=== PATIENT | male | born 1970 | race Caucasian/White ===

== ENCOUNTER 2019-09-14 16:15 | Inpatient (IN) | payer OTHER ==
[2019-09-14 18:15] VITALS: BMI 29.7
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
[2019-09-14] MEDS ORDERED: MENTHOL/PHENOL 1 EACH UD MM PRN (19:25)
[2019-09-14] MEDS ORDERED: MAGNESIUM CITRATE 300 ML BOTTLE PO PRN (19:25)
[2019-09-14] MEDS ORDERED: MAG HYDROX/AL HYDROX/SIMETH 30 ML UNIT-DOSE CUP PO PRN (19:25)
[2019-09-14] MEDS ORDERED: hydrOXYzine PAMOATE 25 MG CAPSULE (FP) PO PRN (19:25)
[2019-09-14] MEDS ORDERED: MAGNESIUM HYDROX 2400MG/30ML ORAL SUSPENSION 30 ML CUP PO PRN (19:25)
[2019-09-14] MEDS ORDERED: BISMUTH SUBSALICYLATE 524 MG/30 ML UD PO PRN (19:25)
[2019-09-14] MEDS ORDERED: ACETAMINOPHEN 325 MG TABLET (FP) PO PRN ×2 (19:25)
[2019-09-14] MEDS ORDERED: ONDANSETRON *ODT* 4 MG TABLET SL PRN (19:25)
[2019-09-14] MEDS ORDERED: IBUPROFEN 400 MG TABLET (FP) PO PRN (19:25)
[2019-09-14] MEDS ORDERED: NICOTINE POLACRILEX 2 MG GUM BUC PRN (19:25)
[2019-09-14] MEDS ORDERED: METHOCARBAMOL 500 MG TABLET PO PRN (19:25)
[2019-09-14] MEDS ORDERED: ALBUTEROL SO4 8 GM HFA INHALER IH PRN (19:29)
[2019-09-14] MEDS ORDERED: METHADONE HCL 10 MG TABLET (FOR DETOX USE ONLY) PO ONE (19:45)
[2019-09-14] MEDS ORDERED: buPROPion HCL 100 MG TABLET PO SCH (22:00)
[2019-09-14] MEDS ORDERED: MELATONIN 5 MG TABLETS PO PRN (22:00)
[2019-09-14] MEDS: THIAMINE HCL 100 MG TABLET (FP) PO SCH (22:02)
[2019-09-14] MEDS: GABAPENTIN 400 MG CAPSULE (FP) PO SCH (22:02)
[2019-09-14] MEDS: cloNIDine HCL 0.1 MG TABLET PO PRN (22:04)
[2019-09-15] MEDS: GABAPENTIN 400 MG CAPSULE (FP) PO SCH ×3 (05:23→22:06)
--- NOTE | 2019-09-15 09:22 | EKG ---
Test Reason : Blood Pressure : / mmHG Vent. Rate : 058 BPM Atrial Rate : 058 BPM P-R Int : 178 ms QRS Dur : 106 ms QT Int : 410 ms P-R-T Axes : 031 051 038 degrees QTc Int : 402 ms SINUS BRADYCARDIA OTHERWISE NORMAL ECG NO PREVIOUS ECGS AVAILABLE Confirmed by MD Riaz, Joo ([id number]) on 09/15/2019 9:22:32 AM Referred By: Confirmed By:Joo Mello MD
[2019-09-15] MEDS ORDERED: METHADONE HCL 5 MG TABLET (FOR DETOX USE ONLY) ONE (09:23)
[2019-09-15] MEDS ORDERED: METHADONE HCL 10 MG TABLET (FOR DETOX USE ONLY) ONE (09:23)
[2019-09-15] MEDS ORDERED: METHADONE (DETOX) 20 MG, METHADONE (DETOX) 5 MG PO ONE (10:00)
[2019-09-15 10:20] LABS: HEMATOCRIT 44.4 % (35.4-49); HEMOGLOBIN 14.8 GM/dL (11.7-16.9); MCH 31.4 pg (25.7-33.7); MCHC 33.3 g/dl (32.0-35.9); MEAN CELL VOLUME 94.3 fl (80-96); MEAN PLT VOLUME 8.5 fl (7.5-11.1); PLATELET COUNT 194 K/MM3 (134-434); RBC 4.71 M/mm3 (4.00-5.60); RDW 13.1 % (11.9-15.9); WHITE BLOOD COUNT 6.2 K/mm3 (4.0-10.0)
[2019-09-15] MEDS: PRENATAL VITAMINS W/ FOLIC ACID TABLET (FP) PO SCH (10:21)
[2019-09-15] MEDS: clonazePAM 0.5 MG TABLET PO PRN ×2 (10:28→22:06)
[2019-09-15] MEDS: NICOTINE 14 MG/24 HOURS TOPICAL PATCH TD SCH (10:28)
[2019-09-15] MEDS: TIOTROPIUM BROMIDE 2.5 MCG (SPIRIVA) RESPIMAT INHALER IH SCH (10:28)
[2019-09-15 10:30] LABS: BILIRUBIN,TOTAL 0.1 mg/dL (0.2-1); CREATININE 0.7 mg/dL (0.55-1.3); TOT PROT 6.2 g/dl (6.4-8.2)
[2019-09-15] MEDS: cloNIDine HCL 0.1 MG TABLET PO PRN (14:20)
--- NOTE | 2019-09-15 14:35 | PN ---
[facility] COWS - Scale Resting Pulse: 0= [place] 80 or Below Sweatin= Chills/Flushing Restless Observation: 0= Sits Still Pupil Size: 1= Pupils >than Normal Bone or Joint Aches: 1= Mild Discomfort Runny Nose/ Eye Tearin= None GI Upset > 30mins: 1= Stomach Cramp Tremor Observation of Outstretched Hands: 2= Slight Tremor Visible Yawning Observation: 0= None Anxiety or Irritability: 2=Irritable/Anxious Goose Flesh Skin: 3=Piloerection COWS Score: 11 S Progress Note (SOAP) Subjective: 48 years old male admitted on 09/14/19 for opiate withdrawal sx management treated with methadone detox regimen feeling tired resting on bed hot and cold chills mild headache and body aches Objective: 09/15/19 14:34 Vital Signs Temperature 96.3 F L 09/15/19 13:58 Pulse Rate 73 09/15/19 13:58 Respiratory Rate 18 09/15/19 13:58 Blood Pressure 124/83 09/15/19 13:58 O2 Sat by Pulse Oximetry (%) Laboratory Last Values WBC 6.2 K/mm3 (4.0-10.0) 09/15/19 08:00 RBC 4.71 M/mm3 (4.00-5.60) 09/15/19 08:00 Hgb 14.8 GM/dL (11.7-16.9) 09/15/19 08:00 Hct 44.4 % (35.4-49) 09/15/19 08:00 MCV 94.3 fl (80-96) 09/15/19 08:00 MCH 31.4 pg (25.7-33.7) 09/15/19 08:00 MCHC 33.3 g/dl (32.0-35.9) 09/15/19 08:00 RDW 13.1 % (11.9-15.9) 09/15/19 08:00 Plt Count 194 K/MM3 (134-434) 09/15/19 08:00 MPV 8.5 fl (7.5-11.1) 09/15/19 08:00 Sodium 144 mmol/L (136-145) 09/15/19 08:00 Potassium 4.0 mmol/L (3.5-5.1) 09/15/19 08:00 Chloride 110 mmol/L (98-107) H 09/15/19 08:00 Carbon Dioxide 28 mmol/L (21-32) 09/15/19 08:00 Anion Gap 6 MMOL/L (8-16) L 09/15/19 08:00 BUN 14.0 mg/dL (7-18) 09/15/19 08:00 Creatinine 0.7 mg/dL (0.55-1.3) 09/15/19 08:00 Est GFR (CKD-EPI)AfAm 131.17 09/15/19 08:00 Est GFR (CKD-EPI)NonAf 113.17 09/15/19 08:00 Random Glucose 99 mg/dL (74-106) 09/15/19 08:00 Calcium 9.0 mg/dL (8.5-10.1) 09/15/19 08:00 Total Bilirubin 0.1 mg/dL (0.2-1) L 09/15/19 08:00 AST 30 U/L (15-37) 09/15/19 08:00 ALT 64 U/L (13-61) H 09/15/19 08:00 Alkaline Phosphatase 119 U/L (45-117) H 09/15/19 08:00 Total Protein 6.2 g/dl (6.4-8.2) L 09/15/19 08:00 Albumin 3.0 g/dl (3.4-5.0) L 09/15/19 08:00 lab noted Assessment: 09/15/19 14:34 opiate withdrawal sx 09/15/19 14:35 discuss medication assisted treatment program Plan: continue methadone detox regimen 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
[2019-09-15] MEDS: THIAMINE HCL 100 MG TABLET (FP) PO SCH (22:06)
[2019-09-15] MEDS: PANTOPRAZOLE 20 MG TABLET (FP) PO SCH (22:07)
[2019-09-16] MEDS: GABAPENTIN 400 MG CAPSULE (FP) PO SCH (06:06)
[2019-09-16] MEDS: clonazePAM 0.5 MG TABLET PO PRN (06:08)
[2019-09-16 09:20] VITALS: BP 145/95; PULSE 91; TEMP 97.1
[2019-09-16] MEDS ORDERED: cloNIDine HCL 0.1 MG TABLET PO PRN (09:22)
--- NOTE | 2019-09-16 09:25 | PN ---
B[facility] COWS - Scale Resting Pulse: 0= [place] 80 or Below Sweatin= Chills/Flushing Restless Observation: 0= Sits Still Pupil Size: 1= Pupils >than Normal Bone or Joint Aches: 1= Mild Discomfort Runny Nose/ Eye Tearin= None GI Upset > 30mins: 1= Stomach Cramp Tremor Observation of Outstretched Hands: 1= Tremor [place], Not Seen Yawning Observation: 1= 1-2x During Session Anxiety or Irritability: 1=Feels Anxious/Irritable Goose Flesh Skin: 0=Smooth Skin COWS Score: 7 BHS Progress Note (SOAP) Subjective: 48 years old male admitted on 09/14/19 for opiate withdrawal sx management treated with methadone detox regimen long history of chronic back pain treated with rina beltran lidocaine patch and "machine" "back brace" resume rnia beltran lidocaine patch c/o chronic GERD taking zantac over the counter medication begin pepcid 20 mg po bid Objective: 09/16/19 09:21 Vital Signs Temperature 97.1 F L 09/16/19 09:19 Pulse Rate 91 H 09/16/19 09:19 Respiratory Rate 18 09/16/19 09:19 Blood Pressure 145/95 09/16/19 09:19 O2 Sat by Pulse Oximetry (%) Laboratory Last Values WBC 6.2 K/mm3 (4.0-10.0) 09/15/19 08:00 RBC 4.71 M/mm3 (4.00-5.60) 09/15/19 08:00 Hgb 14.8 GM/dL (11.7-16.9) 09/15/19 08:00 Hct 44.4 % (35.4-49) 09/15/19 08:00 MCV 94.3 fl (80-96) 09/15/19 08:00 MCH 31.4 pg (25.7-33.7) 09/15/19 08:00 MCHC 33.3 g/dl (32.0-35.9) 09/15/19 08:00 RDW 13.1 % (11.9-15.9) 09/15/19 08:00 Plt Count 194 K/MM3 (134-434) 09/15/19 08:00 MPV 8.5 fl (7.5-11.1) 09/15/19 08:00 Sodium 144 mmol/L (136-145) 09/15/19 08:00 Potassium 4.0 mmol/L (3.5-5.1) 09/15/19 08:00 Chloride 110 mmol/L (98-107) H 09/15/19 08:00 Carbon Dioxide 28 mmol/L (21-32) 09/15/19 08:00 Anion Gap 6 MMOL/L (8-16) L 09/15/19 08:00 BUN 14.0 mg/dL (7-18) 09/15/19 08:00 Creatinine 0.7 mg/dL (0.55-1.3) 09/15/19 08:00 Est GFR (CKD-EPI)AfAm 131.17 09/15/19 08:00 Est GFR (CKD-EPI)NonAf 113.17 09/15/19 08:00 Random Glucose 99 mg/dL (74-106) 09/15/19 08:00 Calcium 9.0 mg/dL (8.5-10.1) 09/15/19 08:00 Total Bilirubin 0.1 mg/dL (0.2-1) L 09/15/19 08:00 AST 30 U/L (15-37) 09/15/19 08:00 ALT 64 U/L (13-61) H 09/15/19 08:00 Alkaline Phosphatase 119 U/L (45-117) H 09/15/19 08:00 Total Protein 6.2 g/dl (6.4-8.2) L 09/15/19 08:00 Albumin 3.0 g/dl (3.4-5.0) L 09/15/19 08:00 RPR Titer Nonreactive (NONREACTIVE) 09/15/19 08:00 lab noted 09/16/19 09:25 clonidine 0.1 mg po q6h prn for hypertension Assessment: 09/16/19 09:25 opiate withdrawal sx Plan: continue methadone detox regimen
[2019-09-16] MEDS: PANTOPRAZOLE 20 MG TABLET (FP) PO SCH (09:40)
[2019-09-16] MEDS: PRENATAL VITAMINS W/ FOLIC ACID TABLET (FP) PO SCH (09:42)
[2019-09-16] MEDS ORDERED: METHADONE HCL 10 MG TABLET (FOR DETOX USE ONLY) PO ONE (10:00)
[2019-09-16] MEDS: TIOTROPIUM BROMIDE 2.5 MCG (SPIRIVA) RESPIMAT INHALER IH SCH (10:00)
[2019-09-16] MEDS ORDERED: FAMOTIDINE 20 MG TABLET PO SCH (10:00)
[2019-09-16] MEDS ORDERED: LIDOCAINE 5% TOPICAL PATCH TP SCH (10:00)
[2019-09-16] MEDS ORDERED: METHYL SALICYLATE/MENTHOL OINT 30 GM TUBE TP SCH (10:00)
[2019-09-16] MEDS: NICOTINE 14 MG/24 HOURS TOPICAL PATCH TD SCH (10:01)
--- NOTE | 2019-09-16 12:26 | DS ---
[facility] Detox Discharge Summary Admission Date: 09/14/19 Discharge Date: 09/16/19 - History Present History: Opioid Dependence Additional Comments: 48 years old male admitted on 09/14/19 for opiate withdrawal sx management treated with methadone detox regimen patient tolerated well alert oriented x 3 speech clearly coherently ambulating steady gait patient insists to leave the detox unit that family member and wake is today - Physical Exam Results Vital Signs: Vital Signs Temperature 97.1 F L 09/16/19 09:19 Pulse Rate 91 H 09/16/19 09:19 Respiratory Rate 18 09/16/19 09:19 Blood Pressure 145/95 09/16/19 09:19 O2 Sat by Pulse Oximetry (%) Pertinent Admission Physical Exam Findings: opiate withdrawal sx Laboratory Last Values WBC 6.2 K/mm3 (4.0-10.0) 09/15/19 08:00 RBC 4.71 M/mm3 (4.00-5.60) 09/15/19 08:00 Hgb 14.8 GM/dL (11.7-16.9) 09/15/19 08:00 Hct 44.4 % (35.4-49) 09/15/19 08:00 MCV 94.3 fl (80-96) 09/15/19 08:00 MCH 31.4 pg (25.7-33.7) 09/15/19 08:00 MCHC 33.3 g/dl (32.0-35.9) 09/15/19 08:00 RDW 13.1 % (11.9-15.9) 09/15/19 08:00 Plt Count 194 K/MM3 (134-434) 09/15/19 08:00 MPV 8.5 fl (7.5-11.1) 09/15/19 08:00 Sodium 144 mmol/L (136-145) 09/15/19 08:00 Potassium 4.0 mmol/L (3.5-5.1) 09/15/19 08:00 Chloride 110 mmol/L (98-107) H 09/15/19 08:00 Carbon Dioxide 28 mmol/L (21-32) 09/15/19 08:00 Anion Gap 6 MMOL/L (8-16) L 09/15/19 08:00 BUN 14.0 mg/dL (7-18) 09/15/19 08:00 Creatinine 0.7 mg/dL (0.55-1.3) 09/15/19 08:00 Est GFR (CKD-EPI)AfAm 131.17 09/15/19 08:00 Est GFR (CKD-EPI)NonAf 113.17 09/15/19 08:00 Random Glucose 99 mg/dL (74-106) 09/15/19 08:00 Calcium 9.0 mg/dL (8.5-10.1) 09/15/19 08:00 Total Bilirubin 0.1 mg/dL (0.2-1) L 09/15/19 08:00 AST 30 U/L (15-37) 09/15/19 08:00 ALT 64 U/L (13-61) H 09/15/19 08:00 Alkaline Phosphatase 119 U/L (45-117) H 09/15/19 08:00 Total Protein 6.2 g/dl (6.4-8.2) L 09/15/19 08:00 Albumin 3.0 g/dl (3.4-5.0) L 09/15/19 08:00 RPR Titer Nonreactive (NONREACTIVE) 09/15/19 08:00 lab noted - Treatment Hospital Course: Detox Protocol Followed, Responded well Patient has Accepted a Rehab Referral to: community support approach - Medication Discharge Medications: Ambulatory Orders Albuterol Sulfate Inhaler - [Ventolin HFA Inhaler -] 2 inh PO Q6H 09/14/19 Bupropion HCl [Wellbutrin -] 300 mg PO BID 09/14/19 Gabapentin [Neurontin -] 800 mg PO TID 09/14/19 Tiotropium [place] [Spiriva] 1 inh PO DAILY 09/14/19 Naloxone HCl [Narcan] 4 mg NS ASDIR PRN #1 spray 09/15/19 - Diagnosis (1) Asthma Status: Chronic Qualifiers: Asthma severity: mild Asthma persistence: intermittent Asthma complication type: with status asthmaticus Qualified Code(s): J45.22 - Mild intermittent asthma with status asthmaticus (2) Opioid use disorder Status: Acute - AMA Did Patient Leave Against Medical Advice: No
[2019-09-16] MEDS ORDERED: LIDOCAINE PATCH REMOVAL MC SCH (22:00)
[2019-09-17] MEDS ORDERED: METHADONE (DETOX) 10 MG, METHADONE (DETOX) 5 MG PO ONE (10:00)
[2019-09-18] MEDS ORDERED: METHADONE HCL 10 MG TABLET (FOR DETOX USE ONLY) PO ONE (10:00)
[2019-09-19] MEDS ORDERED: METHADONE HCL 5 MG TABLET (FOR DETOX USE ONLY) PO ONE (06:00)
== END 2019-09-16 10:47 | disposition left against medical advice (07) | DRG 770 ==
LOC: YASAS 16:15 → Y3N 19:37
PROVIDERS: ADMIT Allergy & Immunology; ATTEND Allergy & Immunology
PROC: HZ2ZZZZ Detoxification Services for Substance Abuse Treatment (ICD-10-PCS; principal; 2019-09-14)
DX: F11.23 Opioid dependence with withdrawal (principal); F10.230 Alcohol dependence with withdrawal, uncomplicated; F17.210 Nicotine dependence, cigarettes, uncomplicated; F32.9 Major depressive disorder, single episode, unspecified; I10 Essential (primary) hypertension; J21.9 Acute bronchiolitis, unspecified; J45.22 Mild intermittent asthma with status asthmaticus; K42.9 Umbilical hernia without obstruction or gangrene; M54.89 Other dorsalgia; Z97.4 Presence of external hearing-aid; Z88.0 Allergy status to penicillin; Z91.018 Allergy to other foods; Z59.0 Homelessness
CPT/HCPCS: 36415; 80053; 85027; 86593; 93005; 93010; J0735